=== PATIENT | male | born 1950 | race African-American/Black ===

== ENCOUNTER 2018-05-11 22:45 | Emergency (ER) | payer OTHER, BC ==
[~2018-05-11] VITALS: Ht 180.3 cm; Wt 81.7 kg
[2018-05-11 23:36] LABS: ABSOLUTE NEUTROPHILS 6.3 thou/uL (1.4-8.2); BASOPHILS 0.4 % (0.0-2.0); EOSINOPHILS 1.7 % (0.0-3.0); HEMATOCRIT 41.1 % (42.0-52.0); HEMOGLOBIN 13.7 gm/dL (14.0-18.0); LYMPHOCYTES 18.7 % (24.0-44.0); MCH 27.3 pg (26.0-34.0); MCHC 33.4 g/dL (28.0-37.0); MCV 81.6 fL (80.0-100.0); MONOCYTES 6.3 % (1.0-8.0); PLATELET COUNT 195 thou/uL (150-400); POLYS 72.9 % (36.0-66.0); RBC 5.04 mil/uL (4.50-6.00); RDW 14.7 % (10.5-14.5); WBC 8.6 thou/uL (4.0-11.0)
[2018-05-11 23:39] LABS: ANION GAP 7 mmol/L (7-16); BUN 20 mg/dL (7-18); CALCIUM 8.9 mg/dL (8.5-10.1); CHLORIDE 101 mmol/L (98-107); CO2 27 mmol/L (21-32); CREATININE 1.2 mg/dL (0.7-1.3); GLUCOSE 155 mg/dL (74-106); POTASSIUM 3.5 mmol/L (3.5-5.1); SODIUM 135 mmol/L (136-145)
[2018-05-11 23:48] LABS: ALBUMIN 3.7 g/dL (3.4-5.0); SGOT 36 U/L (15-37); SGPT 30 U/L (30-65); TOTAL BILIRUBIN 0.6 mg/dL (<0.1-1.0); TOTAL PROTEIN 7.9 g/dL (6.4-8.2); TROPONIN-I <0.06 ng/mL (<0.06)
[2018-05-12] MEDS ORDERED: PRINIVIL20 MG PO (00:18)
[2018-05-12] MEDS ORDERED: PREDNISONE 20 M20 MG PO (00:41)
[2018-05-12 00:51] VITALS: BP 135/91
--- NOTE | 2018-05-12 09:38 | EKG ---
[place] [address] [facility] [place] [address] ELECTROCARDIOGRAM REPORT Name: FERNANDEZ SHRESTHA [facility] [id number] Admission: 05/11/18 Attend Phys: Discharge: 05/12/18 Date of : 48 Report #: [id number] THIS REPORT FOR: //name// [facility] ED Test Date: 2018-05-11 Test Time: 23:28:00 Pat Name: FERNANDEZ SHRESTHA Department: Room: Gender: [employer] Cadet: BERNARDINO : 1950 Requested By: Gee Patterson Order Number: [id number] MD: Sawyer Goodwin Measurements Intervals [place] Rate: 87 P: 77 CO: 187 QRS: -51 QRSD: 124 T: 12 QT: 389 QTc: 468 Interpretive Statements Sinus rhythm Leftward axis Inferior infarct, old No previous ECG available for comparison Electronically Signed On 05-12-2018 9:37:55 QUALITY ASSURANCE AUDITOR by Sawyer Goodwin [email or web address] <ELECTRONICALLY SIGNED> By: Sawyer Goodwin MD, [facility] 05/12/18 [id number] [id number] Sawyer Goodwin MD, FACC /EPI
== END 2018-05-12 00:52 | disposition home or self-care (01) ==
LOC: ER 22:45
PROVIDERS: Emergency Medicine
DX: R55 Syncope and collapse (principal); R41.82 Altered mental status, unspecified; Z88.1 Allergy status to other antibiotic agents; Z88.2 Allergy status to sulfonamides

== ENCOUNTER → 2018-05-28 | Outpatient (CLI) | payer OTHER, BC ==
[~2018-05-28] MED LIST: PREDNISONE 20 M20 MG PO; PRINIVIL20 MG PO
--- NOTE | 2018-05-28 14:40 | EXE ---
[facility] [employer] [address] STRESS ECHOCARDIOGRAM Name: MIKE SHRESTHAJoe Peters Room #: REG CL Catrachita#: [id number] ������������� Admission: 05/28/18 ������������� Attend Phys: Ugo Herrera, Discharge: ��� ������������� ��� Date of : 48 Date of Service: 05/28/18 1440 �� Report #: [id number] �������� ��������������������������������������������[id number] THIS REPORT FOR: //name// APPROVED REPORT Study performed: 05/28/2018 13:11:22 Exam: Stress Echocardiogram Indication: Syncope Patient Location: Out-Patient Stress Nurse: Faby Redd RN Room #: Echo lab 2 Status: routine Ht: 5 ft 11 in HR: 68 bpm BP: 154/98 mmHg Rhythm: NSR Medical History Medical History: HTN Cardiac Risk Factors: HTN Exercise History: Physically active Procedure The patient underwent an Exercise Stress Test using the Tuan Protocol. Blood pressure, heart rate, and EKG were monitored. An Echocardiogram was performed by manufacturing process technician in four stages in quad fashion. At peak stress, four selected images were obtained and placed side by side with resting images for comparison. Stress Test Details Stress Test: Exercise stress testing was performed using a Tuan protocol. HR Resting HR: 68 bpm Max Heart Rate (APMHR): 151 bpm Max HR Achieved: 146 bpm Target HR (85% APMHR): 128 bpm % of APMHR: 96 Recovery HR: 93 bpm HR response to stress: Normal HR response to stress BP Resting BP: 154/98 mmHg Max BP: 200/124 mmHg Recovery BP: 158/100 mmHg BP response to stress: Normal blood pressure response to [facility] [address] [place] [address] STRESS ECHOCARDIOGRAM Name: FERNANDEZ SHRESTHA Room #: REG Catr[place]ita#: [id number] ������������� Admission: 05/28/18 ������������� Attend Phys: Ugo Herrera, Discharge: ��� ������������� ��� Date of : 48 Date of Service: 05/28/18 1440 �� Report #: [id number] �������� ��������������������������������������������[id number] stress. ECG Resting ECG: Sinus Rhythm Stress ECG: Sinus Tachycardia Recovery ECG: Sinus Rhythm Clinical Reason for Termination: Maximal effort Exercise duration: 9 min sec Highest Stage Achieved: Stage 3: 3.4 mph at 14% grade. Exercise capacity: 10.4 METs Overall Exercise Capacity for Age: Good Stress ECG Conclusion 1. Subjectively negative for ischemia 2. Electrocardiographically negative for ischemia 3. Satisfactory functional capacity Pre-Stress Echo The resting Echocardiogram showed normal left ventricular contractility with an estimated Ejection Fraction of about >55%. Normal wall motion in all segments on baseline images. Post-Stress Echo The stress Echocardiogram showed normal left ventricular contractility with an estimated Ejection Fraction of about >70%. Normal augmentation of wall motion in all segments on post stress images. Clinical Normal augmentation of myocardial wall segments using a 17 segment model. Conclusion Clinical Response: Non-ischemic Exercise Capacity: satisfactory Stress ECG Response: Non-ischemic Stress Echo Images: Non-ischemic 1. Low risk study No prior study available for comparison. Other Information Study Quality: Good [facility] [address] [place] [address] STRESS ECHOCARDIOGRAM Name: FERNANDEZ SHRESTHA Room #: REG [facility] LAWNNavNav#: [id number] ������������� Admission: 05/28/18 ������������� Attend Phys: Ugo Hererra, Discharge: ��� ������������� ��� Date of : 48 Date of Service: 05/28/18 1440 �� Report #: [id number] �������� ��������������������������������������������[id number] <Conclusion> 1. Low risk study ��������������������������������������������� <ELECTRONICALLY SIGNED> ���������������������������������������� By: Ankush Wright MD ��������������������������������������������� 05/28/18 1440 [id number] Ankush Wright MD /INF
== END ==
LOC: CV 12:22
DX: R55 Syncope and collapse (principal); I10 Essential (primary) hypertension; Z88.1 Allergy status to other antibiotic agents; Z88.0 Allergy status to penicillin

== ENCOUNTER → 2019-09-28 | Outpatient (CLI) | payer OTHER, BC ==
[2019-09-28 10:10] LABS: CREATININE 1.1 mg/dL (0.7-1.3)
== END ==
LOC: MRI 09:09
PROVIDERS: ATTEND Family Medicine
DX: N28.1 Cyst of kidney, acquired (principal); D18.09 Hemangioma of other sites; M41.86 Other forms of scoliosis, lumbar region; M47.816 Spondylosis without myelopathy or radiculopathy, lumbar region; M48.061 Spinal stenosis, lumbar region without neurogenic claudication; Q45.3 Other congenital malformations of pancreas and pancreatic duct